=== PATIENT | female | born 1955 | race Caucasian/White ===

== ENCOUNTER → 2018-05-31 | Emergency (ER) | payer MEDICAID, MEDICARE ==
[~2018-05-31] VITALS: Ht 165.1 cm; Wt 99.8 kg
[~2018-05-31] MED LIST: ANAS1TAB PO; DENO60DI SQ; IV NS 0.9% 1,000 ML BAG IV ONE; LEVO50TA PO; MORPHINE SULFATE INJ 2 MG/ML DISP.SYRIN IV ONE; MORPHINE SULFATE INJ 4 MG/ML DISP.SYRIN ONE; ONDANSETRON HCL/PF 4 MG/2 ML VIAL IVP ONE; ONDANSETRON HCL/PF 4 MG/2 ML VIAL ONE; QUET300T2 PO
[2018-05-31 15:19] LABS: APPEARANCE,URINE Clear (CLEAR); BILIRUBIN,URINE Negative (NEGATIVE); BLOOD, URINE Moderate Ery/uL (NEGATIVE); COLOR,URINE Yellow (YELLOW); KETONES,URINE Negative (NEGATIVE); LEUKOCYTE ESTERASE ,URINE Negative (NEGATIVE); NITRITE, URINE Negative (NEGATIVE); PH,URINE 5.5 (5.0-8.0); PROTEIN,URINE Negative (NEGATIVE); UGLUCOSE Negative (NEGATIVE); UROBILINOGEN,URINE 0.2 EU/dL (0.2)
[2018-05-31 15:28] LABS: BACTERIA,URINE None seen /HPF (None Seen); SQUAMOUS EPITHELIAL CELL,UR Few /HPF (None Seen)
[2018-05-31 15:31] LABS: BASOPHILS % (AUTO) 0.7 % (0.0-2.0); EOSINOPHILS % (AUTO) 1.8 % (0.0-6.0); HEMATOCRIT 37 % (33-45); HEMOGLOBIN 12.3 g/dL (11.5-14.8); LYMPHOCYTES # (AUTO) 1.7 /CMM (0.8-4.8); LYMPHOCYTES % (AUTO) 27.3 % (20.0-44.0); MEAN CORPUSCULAR HEMOGLOBIN 28 PG (26.0-33.0); MEAN CORPUSCULAR HGB CONC 33 g/dl (31.0-36.0); MEAN CORPUSCULAR VOLUME 84 fL (82-100); MONOCYTES # (AUTO) 0.3 /CMM (0.1-1.30); MONOCYTES % (AUTO) 5.2 % (2.0-12.0); NEUTROPHILS # (AUTO) 4.2 /CMM (1.8-8.9); PLATELET COUNT (AUTO) 249 /CMM (150-450); RDW COEFFICIENT OF VARIATION 12.3 (11.5-15.0); RED BLOOD CELL COUNT(AUTO) 4.43 MIL/uL (4.0-5.2); WHITE BLOOD COUNT (AUTO) 6.4 K/uL (4.3-11.0)
[2018-05-31 15:33] LABS: CALCIUM, SERUM 9.2 mg/dL (8.5-10.1); CREATININE 0.9 mg/dL (0.6-1.3); POTASSIUM 4.1 mmol/L (3.5-5.1)
[2018-05-31 15:39] LABS: ALBUMIN 3.6 g/dL (3.4-5.0); BILIRUBIN,DIRECT 0.1 mg/dL (0.0-0.2); BILIRUBIN,TOTAL 0.4 mg/dL (0.2-1.0); TOTAL PROTEIN, SERUM 6.8 g/dL (6.4-8.2)
--- NOTE | 2018-05-31 15:42 | NUR ---
BIB SELF PT C/O ON & OFF LLQ AND L FLANK PAIN X 3 DAYS. PT SEEN & EVAL'D BY TRISTON SETH. PT DENIES CP, SOB, DIZZINESS, WEAKNESS NAD NOTED @ THIS TIME. PT STS SHE HAS HX OF KIDNEY STONE. PT WILL CONT TO MONITOR.
--- NOTE | 2018-05-31 16:28 | NUR ---
Patient discharged to home in stable condition. Written and verbal after care instructions given. Patient verbalizes understanding of instruction.
[2018-05-31 16:31] VITALS: BP 115/60
== END | disposition home or self-care (01) ==
LOC: ER 14:27
DX: R31.9 Hematuria, unspecified (principal); F31.9 Bipolar disorder, unspecified; E07.9 Disorder of thyroid, unspecified; F17.200 Nicotine dependence, unspecified, uncomplicated; Z85.3 Personal history of malignant neoplasm of breast; Z90.89 Acquired absence of other organs; Z88.0 Allergy status to penicillin; Z79.899 Other long term (current) drug therapy; Z87.442 Personal history of urinary calculi
CPT/HCPCS: 36415; 80048; 80076; 81001; 83690; 85025; 96374; 96375; 99284; A4606; J2270; J2405; J7030; Z7610; 81000-TC

== ENCOUNTER 2018-06-01 15:46 | Emergency (ER) | payer MEDICARE, MEDICAID ==
[~2018-06-01] VITALS: Ht 165.1 cm; Wt 99.8 kg
[~2018-06-01 15:46] MED LIST changes: -IV NS 0.9% 1,000 ML BAG IV ONE; -MORPHINE SULFATE INJ 2 MG/ML DISP.SYRIN IV ONE; -MORPHINE SULFATE INJ 4 MG/ML DISP.SYRIN ONE; -ONDANSETRON HCL/PF 4 MG/2 ML VIAL IVP ONE; -ONDANSETRON HCL/PF 4 MG/2 ML VIAL ONE
[2018-06-01 15:53] VITALS: BP 127/74
--- NOTE | 2018-06-01 16:20 | NUR ---
US TECH AT BS.
[2018-06-01 16:35] LABS: APPEARANCE,URINE Clear (CLEAR); BILIRUBIN,URINE Negative (NEGATIVE); BLOOD, URINE Trace-lysed Ery/uL (NEGATIVE); COLOR,URINE Yellow (YELLOW); KETONES,URINE Negative (NEGATIVE); LEUKOCYTE ESTERASE ,URINE Negative (NEGATIVE); NITRITE, URINE Negative (NEGATIVE); PROTEIN,URINE Negative (NEGATIVE); UGLUCOSE Negative (NEGATIVE); UROBILINOGEN,URINE 0.2 EU/dL (0.2)
[2018-06-01 16:48] LABS: BACTERIA,URINE None seen /HPF (None Seen); RBC,URINE 0-2 /HPF (0-2); SQUAMOUS EPITHELIAL CELL,UR Few /HPF (None Seen); WBC,URINE 0-3 /HPF (0-3)
== END 2018-06-01 17:49 | disposition home or self-care (01) ==
LOC: ER 15:47
DX: R10.9 Unspecified abdominal pain (principal); F31.9 Bipolar disorder, unspecified; F17.200 Nicotine dependence, unspecified, uncomplicated; Z85.3 Personal history of malignant neoplasm of breast; E07.9 Disorder of thyroid, unspecified; Z88.0 Allergy status to penicillin; Z90.89 Acquired absence of other organs
CPT/HCPCS: 76770-TC; 81000-TC; A4606; Z7610

== ENCOUNTER 2019-04-07 15:13 | Emergency (ER) | payer MEDICAID, MEDICARE ==
[~2019-04-07] VITALS: Ht 165.1 cm; Wt 99.8 kg
[~2019-04-07 15:13] MED LIST changes: -ANAS1TAB PO; +ANAS1TAB50 PO
--- NOTE | 2019-04-07 16:10 | NUR ---
PT WALKED INTO [facility] ROOM FOR "Back Pain started yesterday- really sharp. +Urinary Frequency" PT UP TO BATH ROOM ALERT WITH ORIENTATION X 4. URINE SAMPLE OBTAINED WILL CONTINUE TO FOLLOW
[2019-04-07 16:18] LABS: APPEARANCE,URINE Clear (CLEAR); BILIRUBIN,URINE Negative (NEGATIVE); BLOOD, URINE Trace-lysed Ery/uL (NEGATIVE); KETONES,URINE Negative (NEGATIVE); LEUKOCYTE ESTERASE ,URINE Negative (NEGATIVE); NITRITE, URINE Positive (NEGATIVE); PH,URINE 5.5 (5.0-8.0); PROTEIN,URINE Negative (NEGATIVE); UGLUCOSE Negative (NEGATIVE); UROBILINOGEN,URINE 0.2 EU/dL (0.2)
[2019-04-07 16:19] LABS: COLOR,URINE DARK YELLOW (YELLOW)
[2019-04-07 16:30] LABS: BACTERIA,URINE Few /HPF (None Seen); RBC,URINE 0-2 /HPF (0-2); SQUAMOUS EPITHELIAL CELL,UR Few /HPF (None Seen); WBC,URINE 0-2 /HPF (0-3)
[2019-04-07] MEDS ORDERED: KETOROLAC TROMETHAMINE INJ 60 MG/2 ML VIAL IM ONE (17:00)
[2019-04-07] MEDS ORDERED: KETOROLAC TROMETHAMINE INJ 30 MG/ML VIAL ONE (17:04)
[2019-04-07 17:10] VITALS: BP 139/64
--- NOTE | 2019-04-07 17:10 | NUR ---
PT DISCHARGED GIVEN ACI AND PRESCRIPTION WILL FOLLOW UP WITH PCP
== END 2019-04-07 17:11 | disposition home or self-care (01) ==
LOC: ER 15:13
DX: S39.012A Strain of muscle, fascia and tendon of lower back, initial encounter (principal); F31.9 Bipolar disorder, unspecified; F17.200 Nicotine dependence, unspecified, uncomplicated; Z87.442 Personal history of urinary calculi; Z85.3 Personal history of malignant neoplasm of breast; Z90.10 Acquired absence of unspecified breast and nipple; Z90.89 Acquired absence of other organs; Z98.890 Other specified postprocedural states; Z88.0 Allergy status to penicillin; X58.XXXA Exposure to other specified factors, initial encounter; Y93.89 Activity, other specified; Y92.89 Other specified places as the place of occurrence of the external cause; Y99.8 Other external cause status
CPT/HCPCS: 81001; 96372; 99283; J1885; 81000-TC

== ENCOUNTER 2019-09-07 09:12 | Inpatient (IN) | payer MEDICARE, MEDICAID ==
[~2019-09-07] VITALS: Ht 165.1 cm; Wt 97.1 kg
--- NOTE | 2019-09-07 09:24 | NUR ---
CAME IN FOR WORSENING PRESSURE LIKE CHEST PAIN x 3 DAYS. STATES PATIENT IS ON D3 SUPPLEMENTS FOR D DEFFICIENCY. TO ER BED 10, HOOKED TO LAY UP OPERATOR, CHANGED TO HOSP W, AWAITING MD HIGGINS.
--- NOTE | 2019-09-07 09:25 | NUR ---
DR LIU AT BEDSIDE
[2019-09-07] MEDS ORDERED: ASPIRIN 325 MG TABLET PO ONE (09:30)
[2019-09-07] MEDS ORDERED: NITROGLYCERIN PACKET 1 GM PACKET TD ONE (09:30)
[2019-09-07 09:37] LABS: BASOPHILS # (AUTO) 0.1 /CMM (0.0-0.2); BASOPHILS % (AUTO) 1.1 % (0.0-2.0); EOSINOPHILS % (AUTO) 2.5 % (0.0-6.0); HEMATOCRIT 38 % (33-45); HEMOGLOBIN 12.1 g/dL (11.5-14.8); LYMPHOCYTES # (AUTO) 1.8 /CMM (0.8-4.8); LYMPHOCYTES % (AUTO) 33.6 % (20.0-44.0); MEAN CORPUSCULAR HGB CONC 32 g/dl (31.0-36.0); MEAN CORPUSCULAR VOLUME 85 fL (82-100); MONOCYTES # (AUTO) 0.3 /CMM (0.1-1.30); NEUTROPHILS % (AUTO) 56.8 % (43.0-81.0); PLATELET COUNT (AUTO) 211 /CMM (150-450); RED BLOOD CELL COUNT(AUTO) 4.44 MIL/uL (4.0-5.2); WHITE BLOOD COUNT (AUTO) 5.2 K/uL (4.3-11.0)
[2019-09-07] MEDS ORDERED: ASPIRIN 325 MG TABLET ONE (09:39)
[2019-09-07] MEDS ORDERED: NITROGLYCERIN PACKET 1 GM PACKET ONE (09:39)
--- NOTE | 2019-09-07 09:44 | NUR ---
CALLED NURSING SUP FOR TELE BED.
--- NOTE | 2019-09-07 10:00 | NUR ---
NURSING SUP GAVE TELE BED 116-2.
[2019-09-07 10:02] LABS: ALANINE AMINOTRANSFERASE 21 U/L (12-78); ALBUMIN 3.8 g/dL (3.4-5.0); ALKALINE PHOSPHATASE 48 U/L (46-116); ASPARTATE AMINOTRANSFERASE 15 U/L (15-37); BILIRUBIN,DIRECT 0.1 mg/dL (0.0-0.2); BILIRUBIN,TOTAL 0.5 mg/dL (0.2-1.0); CALCIUM, SERUM 8.7 mg/dL (8.5-10.1); CARBON DIOXIDE 25 mmol/L (21-32); CHLORIDE 105 mmol/L (98-107); GLUCOSE 95 mg/dL (74-106); SODIUM SERUM 138 mmol/L (136-145); TOTAL PROTEIN, SERUM 6.8 g/dL (6.4-8.2); UREA NITROGEN, BLOOD 17 mg/dL (7-18)
--- NOTE | 2019-09-07 10:07 | NUR ---
REPORT GIVEN TO RAI OF TELE UNIT
[2019-09-07] MEDS ORDERED: BRIM5DRO OP (10:45)
[2019-09-07] MEDS ORDERED: QUET100T PO (10:45)
[2019-09-07] MEDS ORDERED: ERGO500040 PO (10:45)
[2019-09-07] MEDS ORDERED: BROM3DRO OP (10:45)
[2019-09-07] MEDS ORDERED: LEVO112T7 PO (10:45)
--- NOTE | 2019-09-07 11:00 | NUR ---
PAGED [facility].
[2019-09-07] MEDS ORDERED: ACETAMINOPHEN ES 500 MG TABLET ONE (11:13)
[2019-09-07] MEDS ORDERED: ACETAMINOPHEN 650 MG/20.3 ML UDC NG ONE (11:30)
[2019-09-07 12:00] VITALS: BP 128/70
[2019-09-07] MEDS ORDERED: ACETAMINOPHEN ES 500 MG TABLET PO ONE (12:00)
[2019-09-07] MEDS ORDERED: MAG HYDROX/AL HYDROX/SIMETH 30 ML UDC PO PRN (13:00)
[2019-09-07] MEDS ORDERED: ONDANSETRON HCL/PF 4 MG/2 ML VIAL IVP PRN (13:00)
[2019-09-07] MEDS ORDERED: ACETAMINOPHEN 325 MG TABLET PO PRN (13:00)
[2019-09-07] MEDS ORDERED: Z GUARD REMEDY 2 OZ OINT TP PRN (13:00)
[2019-09-07] MEDS ORDERED: MAGNESIUM HYDROXIDE 30 ML UDC PO PRN (13:00)
[2019-09-07] MEDS ORDERED: ZOLPIDEM TARTRATE 5 MG TABLET PO PRN (13:00)
[2019-09-07 13:30] VITALS: BP 128/70
[2019-09-07] MEDS: HYDROCODONE/APAP 5/325MG 1 EACH TABLET PO PRN ×2 (15:16→20:43)
[2019-09-07] MEDS: BRIMONIDINE TARTRATE OPHT SOLN 5 ML BOTTLE OP SCH ×2 (15:17→20:40)
[2019-09-07 16:00] VITALS: BP 152/74
[2019-09-07] MEDS: DICLOFENAC 0.1% OPTH DROPS 5 ML BOTTLE OP SCH ×2 (18:52→20:39)
--- NOTE | 2019-09-07 19:00 | NUR ---
BRICK BURNER CLOSING RECEIVED PATIENT A/Ox4. ON ROOM AIR, NO RESPIRATORY DISTRESS. DENIES SOB. COMPLAINTS OF 10/10 CHEST PAIN AND HEADACHE. MD AWARE. EKG AND TROPONINS. TELE ATTACHED, SINUS RHYTHM ELIO HR 58. NOTED EDEMA TO MEDIAL CHEST WALL, NONPITTING. PATIENT IS AMBULATORY. SKIN IS INTACT. BELONGINGS ACCOUNTED FOR. L AC 18G C/D/I. EDUCATION PROVIDED ABOUT ACS AND SMOKING CESSATION. ADMISSION DOCUMENTATION COMPLETED..
[2019-09-07 20:00] VITALS: BP 138/69
--- NOTE | 2019-09-07 20:28 | NUR ---
DEFENCE FORCE SENIOR OFFICER NOTES RECEIVED PT ON BED. A/O X 4. ON ROOM AIR NO RESPIRATORY DISTRESS NOTED. ON TELE MONITOR SR 60. IV ACCESS ON LAC G18, PATENT AND INTACT. HEAD OF BED ELEVATED. SIDE RAILS UP. CALL LIGHT WITHIN REACH. BED IN LOW AND LOCKED POSITION. WILL MONITOR PT CLOSELY.
[2019-09-07] MEDS: DORZOLAMIDE 2% LEFTEYE SCH (20:39)
[2019-09-07] MEDS: PROLENSA 0.07% XX SCH (20:39)
[2019-09-07] MEDS ORDERED: QUETIAPINE FUMARATE 100 MG TABLET PO SCH (22:00)
[2019-09-08] VITALS: BP 115/59
[2019-09-08 04:00] VITALS: BP 102/59
[2019-09-08] MEDS: BRIMONIDINE TARTRATE OPHT SOLN 5 ML BOTTLE OP SCH (05:18)
[2019-09-08 06:20] LABS: BASOPHILS % (AUTO) 0.6 % (0.0-2.0); EOSINOPHILS % (AUTO) 2.6 % (0.0-6.0); HEMATOCRIT 36 % (33-45); HEMOGLOBIN 11.5 g/dL (11.5-14.8); LYMPHOCYTES # (AUTO) 1.8 /CMM (0.8-4.8); LYMPHOCYTES % (AUTO) 36.7 % (20.0-44.0); MEAN CORPUSCULAR HGB CONC 32 g/dl (31.0-36.0); MEAN CORPUSCULAR VOLUME 85 fL (82-100); MONOCYTES # (AUTO) 0.4 /CMM (0.1-1.30); MONOCYTES % (AUTO) 7.5 % (2.0-12.0); NEUTROPHILS # (AUTO) 2.6 /CMM (1.8-8.9); NEUTROPHILS % (AUTO) 52.6 % (43.0-81.0); PLATELET COUNT (AUTO) 180 /CMM (150-450); RED BLOOD CELL COUNT(AUTO) 4.23 MIL/uL (4.0-5.2); WHITE BLOOD COUNT (AUTO) 4.8 K/uL (4.3-11.0)
[2019-09-08 06:44] LABS: CALCIUM, SERUM 8.7 mg/dL (8.5-10.1); CREATININE 0.8 mg/dL (0.6-1.3); PHOSPHORUS 4.4 mg/dL (2.5-4.9); POTASSIUM 4.3 mmol/L (3.5-5.1)
--- NOTE | 2019-09-08 06:52 | NUR ---
PLATE DRILLER NOTES NO ACUTE CHANGES NOTED DURING THE SHIFT. PROVIDED COMFORT AND SAFETY. WILL ENDORSE TO THE AM NURSE FOR CONTINUITY OF CARE.
--- NOTE | 2019-09-08 07:00 | NUR ---
RN AM SHIFT NOTE IV PATENT AND FLUSHING WELL. . SIDE RAILS UP CALL LIGHT WITHIN REACH.. ALL NEEDS MET AT THIS TIME. CONTINUE MONITORING PATIENT. NO PAIN NOTED. PATIENT IN GOOD SPIRITS. PARTICIPATING IN CARE. CONTINUE TO MOITOR.
[2019-09-08 08:00] VITALS: BP 118/67
[2019-09-08] MEDS: DORZOLAMIDE 2% LEFTEYE SCH (08:29)
[2019-09-08] MEDS: PROLENSA 0.07% XX SCH (08:33)
[2019-09-08] MEDS: HYDROCODONE/APAP 5/325MG 1 EACH TABLET PO PRN (08:34)
[2019-09-08] MEDS: DICLOFENAC 0.1% OPTH DROPS 5 ML BOTTLE OP SCH (08:45)
[2019-09-08] MEDS ORDERED: QUETIAPINE FUMARATE 100 MG TABLET PO SCH (09:00)
[2019-09-08] MEDS ORDERED: LEVOTHYROXINE SODIUM 112 MCG TABLET PO SCH (09:00)
[2019-09-08] MEDS ORDERED: NAPROXEN 500 MG TABLET PO SCH (09:30)
[2019-09-08] MEDS ORDERED: NAPR-1164 PO (09:34)
[2019-09-08] MEDS ORDERED: SIMV20TA6 PO (09:42)
--- NOTE | 2019-09-08 09:58 | NUR ---
SUPERVISOR SANDING NOTE PATIENT SEEN BY CIRCULAR RIPSAW OPERATOR AND PRIMARY. OK FOR D/C TO HOME. MEDICATION GIVEN INFORMATION GIVEN REGARDING CONDITION AND VITALS WNL. NEW MEDS CALLED IN TO PHARMACY. SON AT BEDSIDE BELONGING LIST SIGNED AND ALL ITEMS RECIEVED. NO PAIN AT THIS TIME. PATIENT ABLE TO AMBULATE WITH EASE AND STABLE. WILL FOLLOW UP WITH CARDIOLOGY AFTER DISCHARGE PER MD REQUEST. CARD AND PHONE NUMBER PROVIDED. ALL NEEDS MET AT THIS TIME. RN WALKED PATIENT WITH SON TO [employer] LOT
[2019-09-12] MEDS ORDERED: ERGOCALCIFEROL (VITAMIN D 2) 50,000 UNIT CAPSULE PO SCH (09:00)
== END 2019-09-08 09:58 | disposition home or self-care (01) | DRG 206 ==
LOC: ER 09:12 → TELE1 10:10
PROVIDERS: ADMIT Family Medicine; ATTEND Family Medicine
DX: M94.0 Chondrocostal junction syndrome [Tietze] (principal); Z85.3 Personal history of malignant neoplasm of breast; E78.5 Hyperlipidemia, unspecified; Z87.891 Personal history of nicotine dependence; F31.9 Bipolar disorder, unspecified; E89.0 Postprocedural hypothyroidism; E05.00 Thyrotoxicosis with diffuse goiter without thyrotoxic crisis or storm; Z90.11 Acquired absence of right breast and nipple; Z79.899 Other long term (current) drug therapy
CPT/HCPCS: 36415; 71045-TC; 80048-TC; 80061-TC; 80076-TC; 83735-TC; 84100-TC; 84484-TC; 85025-TC; 85730-TC; 87081-TC; 93307-TC; G0378

== ENCOUNTER 2020-04-04 16:37 | Emergency (ER) | payer MEDICAID, MEDICARE ==
[~2020-04-04] VITALS: Ht 165.1 cm; Wt 96.2 kg
[~2020-04-04 16:37] MED LIST changes: -ANAS1TAB50 PO; +BRIM5DRO OP; +BROM3DRO OP; -DENO60DI SQ; +ERGO500040 PO; +LEVO112T7 PO; -LEVO50TA PO; +NAPR-1164 PO; +QUET100T PO; -QUET300T2 PO; +SIMV-46 PO
[2020-04-04 16:53] VITALS: BP 154/72
--- NOTE | 2020-04-04 16:57 | NUR ---
PT AAOX4. AMBULATORY WITH STEADY GAIT. BIBSELF C/O "MY R HIP FEELS LIKE IT IS NOT CONNECTED." PT STATED SHE GRADUALLY IS HAVING PAIN ON HER R HIP. NO PAST SURGERY. VSS. PALCED IN GOWN, AWAITING MD FOR EVAL.
== END 2020-04-04 17:50 | disposition home or self-care (01) ==
LOC: ER 16:43
DX: M54.41 Lumbago with sciatica, right side (principal); M25.551 Pain in right hip; G89.29 Other chronic pain; E78.5 Hyperlipidemia, unspecified; Z85.3 Personal history of malignant neoplasm of breast; Z98.890 Other specified postprocedural states; Z90.89 Acquired absence of other organs; Z88.0 Allergy status to penicillin; Z79.899 Other long term (current) drug therapy

== ENCOUNTER 2021-11-07 13:21 | Emergency (ER) | payer MEDICAID, MEDICARE, OTHER ==
[~2021-11-07] VITALS: Ht 165.1 cm; Wt 90.7 kg
--- NOTE | 2021-11-07 13:21 | NUR ---
PT ON & OFF NUMBNESS OF RIGHT CHEEK AND TINGLING OF TIP OF FINGERS OF R HAND X 2 WEEKS. PT IS AAOX4, NOT IN RESPIRATORY DISTRESS, HOOKED TO CLOTHING DESIGNER, KEPT RESTED AND COMFORTABLE. WILL CONTINUE TO MONITOR.
--- NOTE | 2021-11-07 13:39 | NUR ---
SEEN AND EXAMINED BY .
--- NOTE | 2021-11-07 14:20 | NUR ---
IV LINE ESTABLISHED BLOOD DRAWN AND SENT TO LAB.
[2021-11-07 14:48] LABS: BASOPHILS % (AUTO) 0.5 % (0.0-2.0); EOSINOPHILS % (AUTO) 2.4 % (0.0-6.0); HEMATOCRIT 33 % (33-45); HEMOGLOBIN 10.8 g/dL (11.5-14.8); LYMPHOCYTES # (AUTO) 1.4 K/uL (0.8-4.8); LYMPHOCYTES % (AUTO) 33.9 % (20.0-44.0); MEAN CORPUSCULAR HGB CONC 33 g/dl (31.0-36.0); MEAN CORPUSCULAR VOLUME 85 fL (82-100); MONOCYTES # (AUTO) 0.3 K/uL (0.1-1.30); MONOCYTES % (AUTO) 7.6 % (2.0-12.0); NEUTROPHILS # (AUTO) 2.3 K/uL (1.8-8.9); NEUTROPHILS % (AUTO) 55.6 % (43.0-81.0); PLATELET COUNT (AUTO) 173 K/uL (150-450); RED BLOOD CELL COUNT(AUTO) 3.89 MIL/uL (4.0-5.2); WHITE BLOOD COUNT (AUTO) 4.1 K/uL (4.3-11.0)
[2021-11-07 15:10] LABS: CALCIUM, SERUM 8.9 mg/dL (8.5-10.1); CARBON DIOXIDE 28 mmol/L (21-32); CHLORIDE 106 mmol/L (98-107); GLUCOSE 96 mg/dL (74-106); POTASSIUM 3.9 mmol/L (3.5-5.1); SODIUM SERUM 140 mmol/L (136-145); UREA NITROGEN, BLOOD 10 mg/dL (7-18)
[2021-11-07] MEDS ORDERED: IOHEXOL-350 100 ML VIAL IV ONE (15:59)
[2021-11-07] MEDS ORDERED: IV NS 0.9% 250 ML IV ONE (15:59)
[2021-11-07 18:32] VITALS: BP 120/71
--- NOTE | 2021-11-07 18:32 | NUR ---
IV removed. Catheter intact and site benign. Pressure and 4x4 applied to site. No bleeding noted. Patient discharged to home in stable condition. Written and verbal after care instructions given. Patient verbalizes understanding of instruction.
== END 2021-11-07 18:33 | disposition home or self-care (01) ==
LOC: ER 13:22
DX: R20.2 Paresthesia of skin (principal); Q28.3 Other malformations of cerebral vessels; E78.5 Hyperlipidemia, unspecified; E03.9 Hypothyroidism, unspecified; F17.290 Nicotine dependence, other tobacco product, uncomplicated; Z90.89 Acquired absence of other organs; Z88.0 Allergy status to penicillin; Z79.899 Other long term (current) drug therapy
CPT/HCPCS: 36415; 70450; 70496; 70498; 80048; 84484; 85025; 85730; 93005; 99285; J7050; Q9967

== ENCOUNTER 2022-02-07 10:43 | Emergency (ER) | payer MEDICARE, OTHER ==
[~2022-02-07] VITALS: Ht 165.1 cm; Wt 99.8 kg
[2022-02-07 11:12] VITALS: BP 129/76
[2022-02-07] MEDS ORDERED: SULF1TAB48 PO (11:37)
--- NOTE | 2022-02-07 11:40 | NUR ---
Patient discharged to home in stable condition. Written and verbal after care instructions given. Patient verbalizes understanding of instruction.
== END 2022-02-07 11:55 | disposition home or self-care (01) ==
LOC: ER 10:48
DX: L03.116 Cellulitis of left lower limb (principal); E78.5 Hyperlipidemia, unspecified; F31.9 Bipolar disorder, unspecified; E03.9 Hypothyroidism, unspecified; F17.200 Nicotine dependence, unspecified, uncomplicated; Z85.3 Personal history of malignant neoplasm of breast; Z86.39 Personal history of other endocrine, nutritional and metabolic disease; Z90.11 Acquired absence of right breast and nipple; Z90.09 Acquired absence of other part of head and neck; Z88.0 Allergy status to penicillin; Z79.1 Long term (current) use of non-steroidal anti-inflammatories (NSAID); Z79.899 Other long term (current) drug therapy

== ENCOUNTER 2022-04-21 11:58 | Emergency (ER) | payer MEDICAID, MEDICARE ==
[~2022-04-21] VITALS: Ht 165.1 cm; Wt 99.3 kg
[~2022-04-21 11:58] MED LIST changes: +SULF1TAB48 PO
--- NOTE | 2022-04-21 12:11 | NUR ---
DR WORKMAN AT BEDSIDE
[2022-04-21 12:45] LABS: BASOPHILS % (AUTO) 0.8 % (0.0-2.0); EOSINOPHILS % (AUTO) 1.9 % (0.0-6.0); HEMATOCRIT 35 % (33-45); HEMOGLOBIN 11.4 g/dL (11.5-14.8); LYMPHOCYTES # (AUTO) 1.4 K/uL (0.8-4.8); LYMPHOCYTES % (AUTO) 28.2 % (20.0-44.0); MEAN CORPUSCULAR HGB CONC 32 g/dl (31.0-36.0); MEAN CORPUSCULAR VOLUME 83 fL (82-100); MONOCYTES # (AUTO) 0.3 K/uL (0.1-1.30); MONOCYTES % (AUTO) 6.6 % (2.0-12.0); NEUTROPHILS % (AUTO) 62.5 % (43.0-81.0); PLATELET COUNT (AUTO) 177 K/uL (150-450); RED BLOOD CELL COUNT(AUTO) 4.21 MIL/uL (4.0-5.2); WHITE BLOOD COUNT (AUTO) 4.9 K/uL (4.3-11.0)
--- NOTE | 2022-04-21 12:53 | NUR ---
URINE COLLECTED AND SENT TO THE LAB
[2022-04-21 13:13] LABS: ALBUMIN 3.6 g/dL (3.4-5.0); BILIRUBIN,DIRECT 0.1 mg/dL (0.0-0.2); BILIRUBIN,TOTAL 0.5 mg/dL (0.2-1.0); CALCIUM, SERUM 8.9 mg/dL (8.5-10.1); CREATININE 0.9 mg/dL (0.6-1.3); POTASSIUM 3.9 mmol/L (3.5-5.1); TOTAL PROTEIN, SERUM 6.4 g/dL (6.4-8.2)
[2022-04-21 13:22] LABS: BILIRUBIN,URINE NEGATIVE (NEGATIVE); COLOR,URINE YELLOW (YELLOW); LEUKOCYTE ESTERASE ,URINE NEGATIVE (NEGATIVE); NITRITE, URINE POSITIVE (NEGATIVE); PROTEIN,URINE NEGATIVE (NEGATIVE); UGLUCOSE NEGATIVE (NEGATIVE); UROBILINOGEN,URINE 0.2 EU/dL (0.2)
[2022-04-21 13:42] LABS: BACTERIA,URINE Rare /HPF (None Seen); RBC,URINE 0-2 /HPF (0-2); SQUAMOUS EPITHELIAL CELL,UR Few /HPF (None Seen)
[2022-04-21] MEDS ORDERED: HYDROCODONE/APAP 10/325MG TABLET ONE (14:00)
[2022-04-21] MEDS ORDERED: HYDROCODONE/APAP 10/325MG TABLET PO ONE (14:00)
[2022-04-21] MEDS ORDERED: TRAM50TA2 PO (15:07)
--- NOTE | 2022-04-21 15:19 | NUR ---
Patient discharged to home in stable condition. Written and verbal after care instructions given. Patient verbalizes understanding of instruction.
[2022-04-21 15:37] VITALS: BP 121/80
== END 2022-04-21 15:37 | disposition home or self-care (01) ==
LOC: ER 11:59
DX: R10.32 Left lower quadrant pain (principal); R82.81 Pyuria; R91.8 Other nonspecific abnormal finding of lung field; E78.5 Hyperlipidemia, unspecified; F31.9 Bipolar disorder, unspecified; E03.9 Hypothyroidism, unspecified; F17.200 Nicotine dependence, unspecified, uncomplicated; Z87.442 Personal history of urinary calculi; Z85.3 Personal history of malignant neoplasm of breast; Z90.11 Acquired absence of right breast and nipple; Z90.89 Acquired absence of other organs; Z88.0 Allergy status to penicillin; Z79.899 Other long term (current) drug therapy
CPT/HCPCS: 36415; 80048-TC; 80076-TC; 81001; 83690-TC; 85025-TC; 87086-TC

== ENCOUNTER 2022-10-26 12:21 | Emergency (ER) | payer MEDICAID, MEDICARE ==
[~2022-10-26] VITALS: Ht 165.1 cm; Wt 92.5 kg
[~2022-10-26 12:21] MED LIST changes: +TRAM50TA2 PO
--- NOTE | 2022-10-26 12:42 | NUR ---
PT WALKED INTO THE ER C/O RIGHT SIDED CP THAT RADIATES TO THE "EAR AND NECK" X 5 DAYS. PT DESCRIBES IT "PRESSURE" LIKE PAIN 07/10. PT AMBULATED TO BED WITH STEADY GAIT, PLACED IN SYSTEM SOFTWARE PROGRAMMER. AAOX4, VITAL SIGNS STABLE. PT DENIES SOB.
--- NOTE | 2022-10-26 12:45 | NUR ---
ESTABLISHED IV 20G LEFT AC. BLOOD DRAWN AND SENT TO LAB.
--- NOTE | 2022-10-26 12:50 | NUR ---
TECH AT BEDSIDE FOR EKG.
[2022-10-26 13:18] LABS: BASOPHILS % (AUTO) 0.4 % (0.0-2.0); EOSINOPHILS % (AUTO) 1.3 % (0.0-6.0); HEMATOCRIT 39 % (33-45); HEMOGLOBIN 12.3 g/dL (11.5-14.8); LYMPHOCYTES # (AUTO) 1.1 K/uL (0.8-4.8); LYMPHOCYTES % (AUTO) 13.8 % (20.0-44.0); MEAN CORPUSCULAR HGB CONC 32 g/dl (31.0-36.0); MEAN CORPUSCULAR VOLUME 85 fL (82-100); MONOCYTES # (AUTO) 0.6 K/uL (0.1-1.30); MONOCYTES % (AUTO) 7.3 % (2.0-12.0); NEUTROPHILS # (AUTO) 6.4 K/uL (1.8-8.9); NEUTROPHILS % (AUTO) 77.2 % (43.0-81.0); PLATELET COUNT (AUTO) 215 K/uL (150-450); RED BLOOD CELL COUNT(AUTO) 4.58 MIL/uL (4.0-5.2); WHITE BLOOD COUNT (AUTO) 8.3 K/uL (4.3-11.0)
[2022-10-26 13:26] LABS: CALCIUM, SERUM 8.9 mg/dL (8.5-10.1); CARBON DIOXIDE 27 mmol/L (21-32); CHLORIDE 103 mmol/L (98-107); GLUCOSE 96 mg/dL (74-106); POTASSIUM 3.9 mmol/L (3.5-5.1); SODIUM SERUM 139 mmol/L (136-145); UREA NITROGEN, BLOOD 13 mg/dL (7-18)
[2022-10-26] MEDS ORDERED: BENZ-13 PO (15:51)
[2022-10-26] MEDS ORDERED: IBUP-1955 PO (15:51)
[2022-10-26] MEDS ORDERED: IBUPROFEN 600 MG TABLET PO ONE (16:00)
--- NOTE | 2022-10-26 16:08 | NUR ---
IV removed. Catheter intact and site benign. Pressure and 4x4 applied to site. No bleeding noted.Patient discharged to home in stable condition. Written and verbal after care instructions given. Patient verbalizes understanding of instruction.
[2022-10-26 16:09] VITALS: BP 120/74
[2022-10-27] MEDS ORDERED: ALBU18HF2 INH (14:45)
== END 2022-10-26 16:10 | disposition home or self-care (01) ==
LOC: ER 12:25
DX: J06.9 Acute upper respiratory infection, unspecified (principal); R07.89 Other chest pain; E78.00 Pure hypercholesterolemia, unspecified; Z85.3 Personal history of malignant neoplasm of breast; F31.9 Bipolar disorder, unspecified; Z79.899 Other long term (current) drug therapy; Z88.0 Allergy status to penicillin; F17.200 Nicotine dependence, unspecified, uncomplicated; Z11.52 Encounter for screening for COVID-19
CPT/HCPCS: 36415; 71045-TC; 80048-TC; 84484-TC; 85025-TC

== ENCOUNTER 2022-10-27 12:17 | Emergency (ER) | payer MEDICAID, MEDICARE ==
[~2022-10-27] VITALS: Ht 165.1 cm; Wt 90.7 kg
[~2022-10-27 12:17] MED LIST changes: +BENZ-13 PO; +IBUP-1955 PO
[2022-10-27 12:44] VITALS: BP 136/66
[2022-10-27] MEDS ORDERED: ALBU18HF2 INH (14:45)
--- NOTE | 2022-10-27 15:00 | NUR ---
pt seen and evaluated by dr estrella. disxharged home w/ prescription in stable condition.
== END 2022-10-27 17:45 | disposition home or self-care (01) ==
LOC: ER 12:23
DX: J06.9 Acute upper respiratory infection, unspecified (principal); E78.5 Hyperlipidemia, unspecified; Z85.3 Personal history of malignant neoplasm of breast; F31.9 Bipolar disorder, unspecified; E05.00 Thyrotoxicosis with diffuse goiter without thyrotoxic crisis or storm; Z90.11 Acquired absence of right breast and nipple; Z79.899 Other long term (current) drug therapy; F17.200 Nicotine dependence, unspecified, uncomplicated; Z88.0 Allergy status to penicillin

== ENCOUNTER 2024-11-06 15:42 | Emergency (ER) | payer MEDICAID, MEDICARE ==
[~2024-11-06 15:42] MED LIST changes: +ALBU18HF2 INH
== END 2024-11-06 17:39 | disposition left against medical advice (07) ==
LOC: ER 15:44
DX: R52 Pain, unspecified (principal); R05.9 Cough, unspecified; Z53.21 Procedure and treatment not carried out due to patient leaving prior to being seen by health care provider

== ENCOUNTER 2024-11-23 14:25 | Emergency (ER) | payer MEDICAID, MEDICARE ==
[~2024-11-23] VITALS: Ht 165.1 cm; Wt 91.2 kg
[2024-11-23] MEDS: IV NS 0.9% 1,000 ML BAG IV ONE (15:51)
[2024-11-23 15:53] LABS: APPEARANCE,URINE CLEAR (CLEAR); BILIRUBIN,URINE NEGATIVE (NEGATIVE); BLOOD, URINE TRACE-INTA Ery/uL (NEGATIVE); COLOR,URINE YELLOW (YELLOW); KETONES,URINE NEGATIVE (NEGATIVE); LEUKOCYTE ESTERASE ,URINE NEGATIVE (NEGATIVE); NITRITE, URINE NEGATIVE (NEGATIVE); PROTEIN,URINE NEGATIVE (NEGATIVE); UGLUCOSE NEGATIVE (NEGATIVE); UROBILINOGEN,URINE 0.2 EU/dL (0.2)
[2024-11-23 16:05] LABS: ADD URINE CULTURE NO; BACTERIA,URINE Rare /HPF (None Seen); RBC,URINE 0-2 /HPF (0-2); SQUAMOUS EPITHELIAL CELL,UR 0-2 /HPF (None Seen); WBC,URINE NONE SEEN /HPF (0-3)
[2024-11-23 16:40] LABS: BASOPHILS % (AUTO) 0.7 % (0.0-2.0); EOSINOPHILS # (AUTO) 0.1 K/uL (0.0-0.7); HEMATOCRIT 37 % (33-45); HEMOGLOBIN 11.8 g/dL (11.5-14.8); LYMPHOCYTES # (AUTO) 1.4 K/uL (0.8-4.8); LYMPHOCYTES % (AUTO) 30.7 % (20.0-44.0); MEAN CORPUSCULAR HEMOGLOBIN 28 PG (26.0-33.0); MEAN CORPUSCULAR HGB CONC 32 g/dl (31.0-36.0); MEAN CORPUSCULAR VOLUME 86 fL (82-100); MONOCYTES # (AUTO) 0.4 K/uL (0.1-1.30); MONOCYTES % (AUTO) 8.1 % (2.0-12.0); NEUTROPHILS # (AUTO) 2.6 K/uL (1.8-8.9); NEUTROPHILS % (AUTO) 57.5 % (43.0-81.0); PLATELET COUNT (AUTO) 228 K/uL (150-450); RED BLOOD CELL COUNT(AUTO) 4.24 MIL/uL (4.0-5.2); RED CELL DISTRIBUTION WIDTH 14.3 % (11.5-15.0); WHITE BLOOD COUNT (AUTO) 4.5 K/uL (4.3-11.0)
[2024-11-23 16:49] LABS: CALCIUM, SERUM 9.3 mg/dL (8.5-10.1); CREATININE 0.8 mg/dL (0.6-1.3); POTASSIUM 3.9 mmol/L (3.5-5.1)
[2024-11-23 16:55] LABS: ALBUMIN 3.6 g/dL (3.4-5.0); BILIRUBIN,DIRECT 0.2 mg/dL (0.0-0.2); BILIRUBIN,TOTAL 0.6 mg/dL (0.2-1.0); TOTAL PROTEIN, SERUM 6.4 g/dL (6.4-8.2)
[2024-11-23] MEDS ORDERED: IBUP-1490 PO (17:25)
[2024-11-23] MEDS ORDERED: PRED50TA PO (17:40)
[2024-11-23 17:52] VITALS: BP 152/80; TEMP 98; O2SAT 98
== END 2024-11-23 17:53 | disposition home or self-care (01) ==
LOC: ER 14:49
DX: R07.81 Pleurodynia (principal); R10.11 Right upper quadrant pain; J40 Bronchitis, not specified as acute or chronic; E78.5 Hyperlipidemia, unspecified; F17.200 Nicotine dependence, unspecified, uncomplicated; Z79.890 Hormone replacement therapy; Z79.899 Other long term (current) drug therapy; Z85.3 Personal history of malignant neoplasm of breast; Z88.0 Allergy status to penicillin; Z90.11 Acquired absence of right breast and nipple
CPT/HCPCS: 99284; 74176; 96360; 76700; 71045; 85025; 80048; 83690; 80076; 81001; 36415; J7030

== ENCOUNTER 2025-07-30 08:15 | Emergency (ER) | payer MEDICARE, OTHER ==
[~2025-07-30] VITALS: Ht 165.1 cm; Wt 99.8 kg
[~2025-07-30 08:15] MED LIST changes: +IBUP-1490 PO; +PRED50TA PO
[2025-07-30 08:30] VITALS: TEMP 98.2
[2025-07-30] MEDS ORDERED: ALBUTEROL FS 2.5 MG/3 ML VIAL.NEB ONE (08:46)
[2025-07-30] MEDS ORDERED: IPRATROPIUM NEB FS 0.5 MG/2.5 ML AMPUL.NEB ONE (08:46)
[2025-07-30 08:51] VITALS: O2SAT 97
[2025-07-30] MEDS: IPRATROPIUM NEB FS 0.5 MG/2.5 ML AMPUL.NEB NEB ONE (08:51)
[2025-07-30] MEDS: ALBUTEROL FS 2.5 MG/3 ML VIAL.NEB NEB ONE (08:51)
[2025-07-30 09:04] VITALS: O2SAT 99
[2025-07-30] MEDS ORDERED: ALBU18HF2 INH (09:18)
[2025-07-30] MEDS ORDERED: PRED20TA PO (09:18)
[2025-07-30 09:29] VITALS: BP 132/66; O2SAT 97
== END 2025-07-30 09:28 | disposition home or self-care (01) ==
LOC: ER 08:20
DX: J20.9 Acute bronchitis, unspecified (principal); H40.9 Unspecified glaucoma; F31.9 Bipolar disorder, unspecified; F17.200 Nicotine dependence, unspecified, uncomplicated; E78.5 Hyperlipidemia, unspecified; I51.9 Heart disease, unspecified; Z79.52 Long term (current) use of systemic steroids; Z79.890 Hormone replacement therapy; Z79.899 Other long term (current) drug therapy; Z85.3 Personal history of malignant neoplasm of breast; Z88.0 Allergy status to penicillin; Z90.11 Acquired absence of right breast and nipple
CPT/HCPCS: 71045-TC